=== PATIENT | male | born 1950 | race Caucasian/White ===

== ENCOUNTER 2017-04-04 11:57 | Emergency (ER) | payer MEDICARE, OTHER ==
[~2017-04-04] VITALS: Ht 172.7 cm; Wt 80.7 kg
[2017-04-04] MEDS ORDERED: LISINOPRIL10 MG PO (12:08)
[2017-04-04] MEDS ORDERED: SIMVASTATIN20 MG PO (12:08)
[2017-04-04] MEDS ORDERED: ALLOPURINOL300 MG PO (12:09)
[2017-04-04] MEDS ORDERED: TIMOPTIC5 ML OPTH (13:49)
== END 2017-04-04 14:06 | disposition home or self-care (01) ==
LOC: ED 11:57
DX: H40.052 Ocular hypertension, left eye (principal); I10 Essential (primary) hypertension; E78.00 Pure hypercholesterolemia, unspecified; Z79.899 Other long term (current) drug therapy
CPT/HCPCS: 99283